=== PATIENT | male | born 1995 | race Caucasian/White ===

== ENCOUNTER 2017-09-08 20:21 | Emergency (ER) | payer MEDICAID ==
[~2017-09-08] VITALS: Ht 157.5 cm; Wt 68.9 kg
[2017-09-08 20:30] VITALS: Ht 157.5 cm; Wt 68.9 kg
[2017-09-08 21:21] VITALS: BP 137/72
== END 2017-09-08 21:22 | disposition home or self-care (01) ==
LOC: ED 20:21
DX: F41.9 Anxiety disorder, unspecified (principal)

== ENCOUNTER 2017-10-18 21:14 | Emergency (ER) | payer MEDICAID ==
[2017-10-18 22:49] VITALS: BP 139/61
== END 2017-10-18 22:49 | disposition home or self-care (01) ==
LOC: ED 21:14
DX: S93.401A Sprain of unspecified ligament of right ankle, initial encounter (principal); X50.1XXA Overexertion from prolonged static or awkward postures, initial encounter; Y93.02 Activity, running; Y99.8 Other external cause status; Y92.89 Other specified places as the place of occurrence of the external cause
CPT/HCPCS: J1885

== ENCOUNTER 2017-10-30 19:51 | Emergency (ER) | payer MEDICAID ==
[~2017-10-30] VITALS: Ht 157.5 cm; Wt 68.9 kg
[2017-10-30 20:52] VITALS: BP 129/84; Ht 157.5 cm; Wt 68.9 kg
== END 2017-10-30 21:57 | disposition left against medical advice (07) ==
LOC: ED 19:51
DX: Z53.21 Procedure and treatment not carried out due to patient leaving prior to being seen by health care provider (principal)

== ENCOUNTER 2018-01-20 19:30 | Emergency (ER) | payer MEDICAID ==
[~2018-01-20] VITALS: Ht 165.1 cm; Wt 66.7 kg
[2018-01-20 19:38] VITALS: Ht 165.1 cm; Wt 66.7 kg
[2018-01-20 21:18] VITALS: BP 127/75
== END 2018-01-20 21:18 | disposition home or self-care (01) ==
LOC: ED 19:30
DX: S60.222A Contusion of left hand, initial encounter (principal); W22.8XXA Striking against or struck by other objects, initial encounter; Y93.89 Activity, other specified; Y92.89 Other specified places as the place of occurrence of the external cause; Y99.8 Other external cause status
CPT/HCPCS: 90715

== ENCOUNTER 2018-03-03 02:08 | Emergency (ER) | payer MEDICAID ==
[~2018-03-03] VITALS: Ht 160 cm; Wt 63.0 kg
[2018-03-03 02:13] VITALS: BP 127/79; Ht 160 cm; Wt 63.0 kg
== END 2018-03-03 03:40 | disposition home or self-care (01) ==
LOC: ED 02:08
DX: S06.9X9A Unspecified intracranial injury with loss of consciousness of unspecified duration, initial encounter (principal); F41.9 Anxiety disorder, unspecified; W01.0XXA Fall on same level from slipping, tripping and stumbling without subsequent striking against object, initial encounter; Y93.89 Activity, other specified; Y92.89 Other specified places as the place of occurrence of the external cause; Y99.8 Other external cause status

== ENCOUNTER 2018-05-15 19:42 | Emergency (ER) | payer MEDICAID ==
[~2018-05-15] VITALS: Ht 157.5 cm; Wt 67.6 kg
[2018-05-15 19:47] VITALS: Ht 157.5 cm; Wt 67.6 kg
[2018-05-15 22:08] VITALS: BP 132/70
== END 2018-05-15 22:08 | disposition home or self-care (01) ==
LOC: ED 19:42
DX: G89.29 Other chronic pain (principal); M54.5 Low back pain; F41.9 Anxiety disorder, unspecified

== ENCOUNTER 2018-05-25 10:39 | Emergency (ER) | payer MEDICAID ==
[~2018-05-25] VITALS: Ht 162.6 cm; Wt 67.1 kg
[2018-05-25 10:42] VITALS: Ht 162.6 cm; Wt 67.1 kg
[2018-05-25 13:04] LABS: BASOPHIL % 0.3 % (0-2); PLATELET COUNT 281 x10^3mcL (130-400); RED CELL DISTRIBUTION WIDTH 13.1 % (11.5-14.5)
[2018-05-25 13:17] LABS: CALCIUM 9.9 mg/dL (8.5-10.1); CARBON DIOXIDE 27.6 mmol/L (21-32); CHLORIDE SERUM 101 mmol/L (98-107); CREATININE SERUM 0.8 mg/dL (0.7-1.3); GFR1 > 60 mL/min; GLUCOSE SERUM 94 mg/dL (74-106); POTASSIUM SERUM 3.5 mmol/L (3.5-5.1); SODIUM SERUM 139 mmol/L (136-145)
[2018-05-25 13:23] LABS: ALBUMIN 4.7 g/dL (3.4-5.0); ALKALINE PHOSPHATASE 122 U/L (46-116); ALT/SGPT 32 U/L (16-63); AST/SGOT 24 U/L (15-37); BILIRUBIN TOTAL 1.4 mg/dL (0.20-1.00)
[2018-05-25 13:26] LABS: TOTAL PROTEIN, SERUM 9.2 g/dL (6.4-8.2)
[2018-05-25 15:56] VITALS: BP 138/79
== END 2018-05-25 15:56 | disposition home or self-care (01) ==
LOC: ED 10:39
PROVIDERS: Emergency Medicine
DX: L03.211 Cellulitis of face (principal); F41.9 Anxiety disorder, unspecified
CPT/HCPCS: J3490; J7030; Q9967

== ENCOUNTER 2019-01-09 05:09 | Emergency (ER) | payer MEDICAID ==
[~2019-01-09] VITALS: Ht 162.6 cm; Wt 69.4 kg
[2019-01-09 05:15] VITALS: BP 142/69; Ht 162.6 cm; Wt 69.4 kg
== END 2019-01-09 05:54 | disposition home or self-care (01) ==
LOC: ED 05:09
DX: K12.2 Cellulitis and abscess of mouth (principal); F41.9 Anxiety disorder, unspecified
CPT/HCPCS: J7512

== ENCOUNTER 2019-01-13 08:02 | Emergency (ER) | payer MEDICAID ==
[~2019-01-13] VITALS: Ht 162.6 cm; Wt 68.0 kg
[2019-01-13 08:07] VITALS: Ht 162.6 cm; Wt 68.0 kg
[2019-01-13 10:19] VITALS: BP 121/97
== END 2019-01-13 10:19 | disposition home or self-care (01) ==
LOC: ED 08:02
DX: S01.01XD Laceration without foreign body of scalp, subsequent encounter (principal); L76.22 Postprocedural hemorrhage of skin and subcutaneous tissue following other procedure; F41.9 Anxiety disorder, unspecified; W45.8XXD Other foreign body or object entering through skin, subsequent encounter
CPT/HCPCS: J2001

== ENCOUNTER 2019-01-26 12:41 | Emergency (ER) | payer MEDICAID ==
[~2019-01-26] VITALS: Ht 162.6 cm; Wt 68.9 kg
[2019-01-26 12:49] VITALS: Ht 162.6 cm; Wt 68.9 kg
[2019-01-26 15:30] VITALS: BP 105/62
== END 2019-01-26 15:30 | disposition home or self-care (01) ==
LOC: ED 12:41
DX: S01.91XD Laceration without foreign body of unspecified part of head, subsequent encounter (principal); F41.9 Anxiety disorder, unspecified; X58.XXXD Exposure to other specified factors, subsequent encounter